=== PATIENT | female | born 1965 | race Caucasian/White ===

== ENCOUNTER → 2017-04-02 | Outpatient (CLI) | payer OTHER ==
[~2017-04-02] VITALS: Ht 182.9 cm; Wt 96.2 kg
[~2017-04-02] MED LIST: LOW-OGESTREL1 EACH PO; VALACYCLOVIR500 MG PO
--- NOTE | ~2017-04-02 | HPC ---
[facility] [place] [address] PAIN MANAGEMENT CONSULTATION Name: JUAN FRANCISCO VELASQUEZ Room #: REG Pradeep PatelAntonietta#: [id number] Admission: 04/02/17 Attend Phys: Donell Mays DO Discharge: Date of : 67 Report #: [id number] THIS REPORT FOR: //name// CC: Mark Mays The patient is a very pleasant 52-year-old female seen in consultation at the request of Dr. Mark Atkinson for evaluation of left cervical radicular symptoms. The patient notes in October that antecedent trauma overuse, she developed numbness, tingling in the left neck radiating down her shoulder, arm into the thumb, index, and long finger. 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 She notes symptoms seemed to improve a bit with moving her arm and shaking it. She describes continuous periodic symptoms. She has tried [id number] anti-inflammatory medications (Aleve) with nominal efficacy. Cervical range of motion and stretching activities did not help. She has not seen hourly caregiver. She notes no pain per se, but paresthesia is concerning and she is concerned about some subjective strength loss. REVIEW OF SYSTEMS: Complete review of systems is attached to chart and gone over with the patient. She is . She does not smoke, drink alcohol to excess. She has enjoyed remarkably good health, takes oral contraceptive and valacyclovir. Otherwise, 12-point review of systems is noncontributory. 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 Pain impact score notes the symptoms significantly impact sleep, but really nothing else. PHYSICAL EXAMINATION: VITAL SIGNS: Reveals a 6 feet tall, 212 pounds female, BMI is 28.7 kilograms per meter squared. Blood pressure is 139/77, pulse is 80, respirations 16. NEUROLOGIC: Cranial nerves 2-12 are grossly intact. HEENT: Pupils equal, reactive to light and accommodation. Extraocular muscles are intact. She does have a little lateral gaze nystagmus. She notes that occasionally she does have some episodes of disequilibrium. NECK: Thyroid is unremarkable. MUSCULOSKELETAL: Cervical range of motion has a positive Lhermitte's sign. Does have slight decrease left grasp strength, although deltoid, biceps, triceps strength are generally symmetric. Does have a slightly decreased left biceps reflex compared to the right. Brachioradialis and triceps reflexes appear to be symmetric. HEART: Regular rhythmical without murmur. LUNGS: Clear to auscultation. ABDOMEN: Unremarkable. Gait is tandem. Lower extremity strength is symmetric. [address] [address] PAIN MANAGEMENT CONSULTATION Name: JUAN FRANCISCO VELASQUEZ Room #: REG [facility] Hernandez#: [id number] Admission: 04/02/17 Attend Phys: Donell Mays DO Discharge: Date of : 67 Report #: [id number] DIAGNOSTIC STUDIES: Include MRI of the cervical spine from 03/13/2017. C5-C6 and C6-C7 both note severe left neural foraminal narrowing. ASSESSMENT: Symptomatic cervical radiculopathy by clinical exam and history, having failed conservative therapies. RECOMMENDATION: We will seek authorization for cervical epidural injection under fluoroscopy, she has fairly classic C6-C7 radicular symptoms compatible with her diagnostic findings. Concerned that paresthesia and early weakness does not seem to be resolving spontaneously. Recommend the patient continue nonsteroidal anti-inflammatory agent, Aleve 220 mg b.i.d. We will plan on moving forward with cervical epidural injection at next visit. Thank you for allowing me to participate in the patient's care. I will keep you abreast of her progress. <ELECTRONICALLY SIGNED> By: Donell Mays DO 04/05/17 [id number] Donell Mays DO /nt
[2017-04-02 10:45] VITALS: BP 139/77
== END | disposition home or self-care (01) ==
LOC: PAIN 07:19
DX: M54.12 Radiculopathy, cervical region (principal)